=== PATIENT | female | born 2000 | race African-American/Black ===

== ENCOUNTER 2023-12-07 17:20 | Emergency (ER) | payer OTHER ==
[~2023-12-07] VITALS: Ht 180.3 cm; Wt 125.0 kg
[2023-12-07 17:30] VITALS: BP 111/69; PULSE 78; RESP 18; TEMP 97.9; O2SAT 100
== END 2023-12-07 21:45 | disposition left against medical advice (07) ==
LOC: ER 17:20
DX: R10.9 Unspecified abdominal pain (principal); Z53.21 Procedure and treatment not carried out due to patient leaving prior to being seen by health care provider